=== PATIENT | male | born 1940 | race Caucasian/White ===

== ENCOUNTER 2016-12-20 16:45 | Emergency (ER) | payer MEDICARE, BC ==
[2016-12-20 16:49] VITALS: BP 138/84
[2016-12-20] MEDS ORDERED: diphenhydrAMINE 50 MG/ML SDV IVPUSH ONE (17:08)
[2016-12-20] MEDS ORDERED: methylPREDNISolone Sodium Succinate 125 MG/2 ML SDV IVPUSH ONE (17:08)
[2016-12-20] MEDS ORDERED: Sodium Chloride 0.9% 10 ML Syringe FLUSH SCH (17:30)
--- NOTE | 2016-12-20 17:44 | EDM.PDOC ---
ED HPI GENERAL MEDICAL PROBLEM - General Chief Complaint: Allergic Reaction Stated Complaint: Right face & Lip swelling Time Seen by Provider: 12/20/16 17:11 Source of Information: Reports: Patient History Limitations: Reports: No Limitations - History of Present Illness INITIAL COMMENTS - FREE TEXT/NARRATIVE: Patient comes in after noticing right sided lip swelling. Also complains of some numbness in face around lateral upper and lower lip and adjacent to right corner of mouth. Had similar incident recently after being diagnosed with a tooth infection and placed on Clindamycin. Infection developed after root canal. At that time it was thought that the swelling was due to Clindamycin. He was changed to another antibiotic. Eventually swelling went away. He denies having any tooth pain prior to today's episode. No fevers/chills No other complaints. Tongue feels normal. No itching or rash. Took 50mg Benadryl around 11am and has not noticed any improvement. - Related Data Allergies Allergy/AdvReac Type Severity Reaction Status Date / Time clindamycin Allergy facial Verified 12/20/16 16:53 edema Home Meds: Home Meds Aspirin 81 mg PO BEDTIME 12/20/16 [History] Cephalexin [Keflex] 500 mg PO Q6HR #16 capsule 12/20/16 [Rx] Simvastatin [Zocor] 10 mg PO BEDTIME 12/20/16 [History] amLODIPine Besylate/Benazepril [Amlodipine-Benazepril 10-20 MG] 1 tab PO DAILY 12/20/16 [History] Past Medical History HEENT History: Reports: Impaired Vision Other HEENT History: wears glasses Cardiovascular History: Reports: High Cholesterol, Hypertension Gastrointestinal History: Reports: Chronic Constipation, GERD Musculoskeletal History: Reports: Fracture Neurological History: Reports: None Dermatologic History: Reports: Angiodema - Past Surgical History GI Surgical History: Reports: Appendectomy Social & Family History - Tobacco Use Smoking Status *Q: Former Smoker Years of Tobacco use: 30 Packs/Tins Daily: 1 Used Tobacco, but Quit: Yes Month Tobacco Last Used: qiut 20 years ago Second Hand Smoke Exposure: No - Caffeine Use Caffeine Use: Reports: Soda - Alcohol Use Days Per Week of Alcohol Use: 7 Number of Drinks Per Day: 2 Total Drinks Per Week: 14 - Recreational Drug Use Recreational Drug Use: No ED ROS ALLERGIC REACTION - Review of Systems Review Of Systems: See Below Constitutional: Reports: No Symptoms. Denies: Fever, Chills, Malaise, Weakness , Fatigue, Night Sweats, Diaphoresis, Decreased Appetite, Weight Loss, Weight Gain HEENT: Reports: Other (Right upper lip swelling and numbness as per HPI). Denies: Eye Discharge, Eye Pain, Rhinitis, Throat Pain, Throat Swelling, Vertigo , Vision Change Respiratory: Reports: No Symptoms Cardiovascular: Reports: No Symptoms Endocrine: Reports: No Symptoms GI/Abdominal: Reports: No Symptoms : Reports: No Symptoms Musculoskeletal: Reports: No Symptoms Skin: Reports: No Symptoms Neurological: Reports: No Symptoms Psychiatric: Reports: No Symptoms Hematologic/Lymphatic: Reports: No Symptoms ED EXAM GENERAL NO PERIP PULSE - Physical Exam Exam: See Below Exam Limited By: No Limitations General Appearance: Alert, WD/WN, No Apparent Distress Eye Exam: Bilateral Eye: EOMI, PERRL Ears: Normal External Exam Nose: Normal Inspection Throat/Mouth: Normal Teeth, Normal Gums, Normal Oropharynx, Normal Voice, No Airway Compromise, Other (Right upper lip mildly swollen, right corner lower lip appears mildly swollen. Corner of mouth did not turn up as much on right vs nonaffected side when patient smiled. Teeth and gums non-tender to palpation. No droop noted involving right cheek or right eye. ) Head: Atraumatic, Facial Swelling (see HPI), Other (mild increased firmness near right corner of mouth, no obvious abscess). No: Facial Tenderness Neck: Normal Inspection, Supple, Non-Tender, Full Range of Motion. No: Lymphadenopathy (L), Lymphadenopathy (R) Respiratory/Chest: No Respiratory Distress, Lungs Clear, Normal Breath Sounds, No Accessory Muscle Use Cardiovascular: Regular Rate, Rhythm, No Murmur GI/Abdominal: Soft, Non-Tender Back Exam: Normal Inspection Extremities: Normal Inspection, Normal Capillary Refill Neurological: Alert, Oriented, Normal Cognition, Normal Gait, No Motor/Sensory Deficits Psychiatric: Normal Affect, Normal Mood Skin Exam: Warm, Dry, Intact, Normal Color, No Rash Course - Vital Signs Last Recorded V/S: Last Vital Signs Temp 36.6 C 12/20/16 16:48 Pulse 107 H 12/20/16 17:51 Resp 18 12/20/16 16:48 BP 138/84 12/20/16 16:48 Pulse Ox 96 12/20/16 17:51 - Orders/Labs/Meds Orders: Active Orders 24 hr Category Date Time Status Sodium Chloride 0.9% [Saline Flush] Med 12/20/16 17:30 Active 10 ml FLUSH ASDIRECTED Medication Orders Sodium Chloride (Saline Flush) 10 ml FLUSH ASDIRECTED VASILIY Last Admin: 12/20/16 17:29 Dose: 10 ml Meds: Medications Generic Name Dose Route Start Last Admin Trade Name Freq PRN Reason Stop Dose Admin Sodium Chloride 10 ml 12/20/16 17:30 12/20/16 17:29 Saline Flush FLUSH 10 ml ASDIRECTED VASILIY Administration Discontinued Medications Generic Name Dose Route Start Last Admin Trade Name Freq PRN Reason Stop Dose Admin Diphenhydramine HCl 50 mg 12/20/16 17:08 12/20/16 17:16 Benadryl IVPUSH 12/20/16 17:09 50 mg ONETIME ONE Administration Methylprednisolone Sodium Succinate 125 mg 12/20/16 17:08 12/20/16 17:14 Solu-Medrol IVPUSH 12/20/16 17:09 125 mg ONETIME ONE Administration - Re-Assessments/Exams Free Text/Narrative Re-Assessment/Exam: 12/20/16 18:27 Uncertain if this reflects allergic reaction. May be due to recurrent dental infection given recent history of similar changes last month when he had infection s/p root canal. Infection and swelling of a tooth could cause observed symptoms, and earlier episode likely not related to Clindamycin as originally thought. Plan at this time is to treat for both possibilities. Single dose Solu-medrol and Benadryl given. Patient placed on Keflex. He may continue Benadryl at home. Precautions reviewed prior to discharge. He is to follow up with dentist Thursday after , and if needed follow up with primary provider if symptoms persist. Pulse 91-97 during exam. Patient said that he gets a bit anxious when in doctor' s office. Does not feel that heart rate is elevated compared to normal. Does not appear consistent with Mora's Palsy at this time. Departure - Departure Time of Disposition: 17:34 Disposition: Home, Self-Care 01 Condition: Good Clinical Impression: Lip swelling, Lt facial numbness - Discharge Information Prescriptions: Cephalexin [Keflex] 500 mg PO Q6HR #16 capsule Instructions: Diphenhydramine injection, Methylprednisolone Solution for Injection, Cephalexin tablets or capsules Referrals: Gulshan Maynard PA [Primary Care Provider] - Additional Instructions: Follow up in ER over weekend if things worsen, especially if you develop shortness of breath or rash. As discussed, this could be due to a tooth infection and not an allergic reaction. Take antibiotics every 6 hours. Follow up with dentist on Thursday if symptoms persist. You can also follow up with your primary provider if dentist does not think that this is a dental issue. - My Orders Last 24 Hours: My Active Orders 12/20/16 17:30 Sodium Chloride 0.9% [Saline Flush] 10 ml FLUSH ASDIRECTED - Assessment/Plan Last 24 Hours: My Active Orders 12/20/16 17:30 Sodium Chloride 0.9% [Saline Flush] 10 ml FLUSH ASDIRECTED
== END 2016-12-20 17:55 | disposition home or self-care (01) ==
LOC: LL.ED 16:45
DX: R22.0 Localized swelling, mass and lump, head (principal); R20.0 Anesthesia of skin; I10 Essential (primary) hypertension; E78.00 Pure hypercholesterolemia, unspecified; K21.9 Gastro-esophageal reflux disease without esophagitis; Z88.1 Allergy status to other antibiotic agents; Z88.5 Allergy status to narcotic agent; Z90.89 Acquired absence of other organs; Z87.891 Personal history of nicotine dependence
CPT/HCPCS: 96374; 96375; 99283; J1200; J2930; J7050

== ENCOUNTER 2018-06-17 07:55 | Day surgery (SDC) | payer MEDICARE, BC ==
[2018-06-17] MEDS ORDERED: Sodium Chloride 0.9% 10 ML Syringe FLUSH PRN ×2 (08:00→10:45)
[2018-06-17] MEDS ORDERED: Lactated Ringers 1,000 ML IV SCH ×2 (08:00→10:45)
[2018-06-17] MEDS ORDERED: Midazolam 1 MG/ML 2 ML SDV ONE ×2 (09:04→09:08)
[2018-06-17] MEDS ORDERED: Propofol 200 MG/20 ML SDV ONE ×3 (09:04→11:17)
[2018-06-17] MEDS ORDERED: fentaNYL 100 MCG/2 ML SDV ONE ×2 (09:04→09:08)
--- NOTE | 2018-06-17 09:10 | PCM.PN ---
- General Info Date of Service: 06/17/18 - Review of Systems Systems Review Comment:: 77 y/o male here for EGD and colonoscopy. He has a history of change in bowel habits with guaiac positive stools and GERD. His recent history and physical is reviewed and no significant changes are noted. I have discussed the proposed upper and lower endoscopy with the patient. Risks such as but not limited to bleeding and GI injury reviewed. He appears to understand and agrees to proceed. - Patient Data Vitals - Most Recent: Last Vital Signs Temp 97.9 F 06/17/18 08:19 Pulse 80 06/17/18 08:19 Resp 20 06/17/18 08:19 BP 96/70 06/17/18 08:19 Pulse Ox 98 06/17/18 08:19 Weight - Most Recent: 98.883 kg Med Orders - Current: Current Medications Lactated Ringer's (Ringers, Lactated) 1,000 mls @ 125 mls/hr IV ASDIRECTED VASILIY Last Admin: 06/17/18 08:30 Dose: 125 mls/hr Sodium Chloride (Saline Flush) 10 ml FLUSH ASDIRECTED PRN PRN Reason: Keep Vein Open Discontinued Medications Lactated Ringer's (Ringers, Lactated) 1,000 mls @ 125 mls/hr IV ASDIRECTED VASILIY Sodium Chloride (Saline Flush) 10 ml FLUSH ASDIRECTED PRN PRN Reason: Keep Vein Open - Problem List Review Problem List Initiated/Reviewed/Updated: Yes - My Orders Last 24 Hours: My Active Orders 06/17/18 08:00 Patient Status [ADT] Routine Peripheral IV Care [RC] . DIRECTED Verify Patient Consent Obtain [RC] ASDIRECTED Lactated Ringers [Ringers, Lactated] 1,000 ml IV ASDIRECTED Sodium Chloride 0.9% [Saline Flush] 10 ml FLUSH ASDIRECTED PRN Peripheral IV Insertion Adult [OM.PC] Routine - Assessment Assessment:: GERD Guaiac positive stools Change in bowel habits - Plan Plan:: EGD and colonoscopy
--- NOTE | 2018-06-17 10:15 | PCM.OPNOTE ---
- General Post-Op/Procedure Note Date of Surgery/Procedure: 06/17/18 Operative Procedure(s): EGD with biopsy. Colonoscopy with Polypectomy and polyp destruction Findings: Moderate duodenitis with erosions distal esophageal mucosal changes, possible Patterson's esophagus multiple small rectal polyps and larger hepatic flexure polyp moderate sigmoid diverticulosis Pre Op Diagnosis: GERD. Guaiac positive stools Post-Op Diagnosis: Erosive duodenitis. Reflux esophagitis. moderate sigmoid diverticulosis. multiple colon polyps Anesthesia Technique: MAC Primary Surgeon: Louis Mckinley Pathology: Biopsies of duodenum stomach and esophagus Colon polyps EBL in mLs: 3 Complications: None Condition: Good Free Text/Narrative:: Intake & Output 06/16/18 06/17/18 06/17/18 22:59 06:59 14:59 Intake Total 950 Balance 950
[2018-06-17 10:38] VITALS: BP 98/56
[2018-06-17] MEDS ORDERED: Lidocaine 2% 5 ML SDV ONE (11:17)
--- NOTE | 2018-06-17 14:41 | OR ---
Date of Procedure: 06/17/2018 REFERRING PROVIDER: OSWALDO Marie PREOPERATIVE DIAGNOSES: Guaiac-positive stools and gastroesophageal reflux disease. POSTOPERATIVE DIAGNOSES: Erosive duodenitis, reflux esophagitis, sigmoid diverticulosis, and colon polyps. OPERATION PERFORMED: Esophagogastroduodenoscopy with biopsy and colonoscopy with polypectomy and polyp ablation. INDICATIONS FOR SURGERY: This 77-year-old male was referred for EGD and colonoscopy. He has a history of GERD and also has a recent change in bowel habits and was noted to have guaiac-positive stools. FINDINGS: On upper endoscopy, the patient had inflammation of the first portion of the duodenum. There were some areas of hyperemia of the mucosa as well as some superficial erosions, although no active bleeding seen at this time. The gastric mucosa appeared normal without visible inflammation or ulceration. The GE junction does show evidence of some chronic inflammation with at least one tongue of salmon-colored mucosa extending proximally 2 cm from the GE junction at the 39 cm level. The remainder of the esophagus appeared normal. In the patient's colon, he had multiple polyps including two 5 to 6 mm semi pedunculated polyps in the rectum, approximately 3 cm from the anal verge. There were other multiple 2 to 3 mm polyps noted in the rectum. The patient also had a 1-cm pedunculated polyp noted at the hepatic flexure. There was also moderate degree of sigmoid diverticulosis, although there was no evidence of acute inflammation at this time. DESCRIPTION OF PROCEDURE: The patient was taken to the operating room. He was given intravenous sedation and his throat was topically anesthetized. The esophagus was then intubated with the Olympus gastroscope, which was carefully advanced down through the esophagus, stomach, and into the duodenum, where examination to the 3rd portion was performed. In the area of inflammation in the duodenal bulb, multiple biopsies were taken. The scope was withdrawn into the stomach where full examination including retroflexed examination of the fundus was carried out. Biopsies of the antrum were taken to rule out H. pylori. The GE junction was then carefully examined, and in the area of mucosal change, biopsies were taken to rule out Patterson esophagus. The esophagus was then re-examined as the scope was removed. Attention was turned to colonoscopy. Digital rectal exam was performed showing no rectal masses. The Olympus colonoscope was inserted into the rectum and retroflexed examination of the rectal canal was performed. The two larger polyps in the rectum were removed with cautery snare and retrieved into a polyp trap. They were submitted as a single specimen. Other small polyps noted in the rectum are destroyed with the cautery snare ablating the polyps. The scope was then carefully advanced down through the entire length of the colon until the cecum was reached. The colon did have some angulation in the area of the sigmoid region as well as in the right colon and hand pressure was required to eventually allow safe visualization of the cecum. This was able to be accomplished and the ileocecal valve and appendiceal orifice were viewed. During insertion of the scope, the polyp in the hepatic flexure was noted and it was removed with a cautery snare and retrieved into a polyp trap. Once the cecum had been carefully examined, the scope was slowly withdrawn sequentially re-examining the colonic segments until the entire colon and rectum had been fully examined. The scope was removed and the patient was taken from the operating room in satisfactory condition. ESTIMATED BLOOD LOSS: 3 mL. COMPLICATIONS: None. PROGNOSIS: Good. ALYSA Mckinley MD /[id number]
== END 2018-06-17 11:40 | disposition home or self-care (01) ==
LOC: LL.SDS 07:55
PROVIDERS: ATTEND Surgery
DX: R19.4 Change in bowel habit (principal); K21.0 Gastro-esophageal reflux disease with esophagitis; K29.81 Duodenitis with bleeding; K29.71 Gastritis, unspecified, with bleeding; K20.9 Esophagitis, unspecified; K57.31 Diverticulosis of large intestine without perforation or abscess with bleeding; D12.3 Benign neoplasm of transverse colon; K62.1 Rectal polyp; Z79.82 Long term (current) use of aspirin; Z79.899 Other long term (current) drug therapy; Z88.1 Allergy status to other antibiotic agents; Z87.891 Personal history of nicotine dependence
CPT/HCPCS: 00813; J2001; J2250; J2704; J3010; J7120

== ENCOUNTER 2019-07-14 07:44 | Day surgery (SDC) | payer MEDICARE, BC ==
[2019-07-14] MEDS ORDERED: Sodium Chloride 0.9% 10 ML Syringe FLUSH PRN (07:45)
[2019-07-14] MEDS ORDERED: Lactated Ringers 1,000 ML IV SCH (07:45)
[2019-07-14] MEDS ORDERED: Propofol 200 MG/20 ML SDV ONE ×2 (07:53→09:00)
--- NOTE | 2019-07-14 09:04 | PCM.PN ---
- General Info Date of Service: 07/14/19 - Review of Systems Systems Review Comment:: 79-year-old male with history oesophagus here for EGD. He also has been having some blood-tinged sputum. He is medically stable to proceed today. His recent history and physical is reviewed and no significant changes are noted. I have discussed the proposed EGD with the patient. He agrees to proceed accepting risks. - Patient Data Vitals - Most Recent: Last Vital Signs Temp 98.4 F 07/14/19 08:23 Pulse 78 07/14/19 08:23 Resp 18 07/14/19 08:23 BP 97/58 L 07/14/19 08:23 Pulse Ox 94 L 07/14/19 08:23 Weight - Most Recent: 99.79 kg Med Orders - Current: Current Medications Lactated Ringer's (Ringers, Lactated) 1,000 mls @ 125 mls/hr IV ASDIRECTED VASILIY Last Admin: 07/14/19 08:21 Dose: 125 mls/hr Sodium Chloride (Saline Flush) 10 ml FLUSH ASDIRECTED PRN PRN Reason: Keep Vein Open Discontinued Medications Propofol (Diprivan 20 Ml) Confirm Administered Dose 400 mg .ROUTE .STK-MED ONE Stop: 07/14/19 07:54 Sepsis Event Note - Focused Exam Vital Signs: Vital Signs Temp Pulse Resp BP Pulse Ox 07/14/19 08:23 98.4 F 78 18 97/58 L 94 L Date Exam was Performed: 07/14/19 Time Exam was Performed: 09:02 - Problem List Review Problem List Initiated/Reviewed/Updated: Yes - My Orders Last 24 Hours: My Active Orders 07/14/19 07:45 Patient Status [ADT] Routine Peripheral IV Care [RC] . DIRECTED Verify Patient Consent Obtain [RC] ASDIRECTED Lactated Ringers [Ringers, Lactated] 1,000 ml IV ASDIRECTED Sodium Chloride 0.9% [Saline Flush] 10 ml FLUSH ASDIRECTED PRN Peripheral IV Insertion Adult [OM.PC] Routine - Assessment Assessment:: history of Patterson's esophagus Blood-tinged sputum - Plan Plan:: EGD
--- NOTE | 2019-07-14 09:32 | PCM.OPNOTE ---
- General Post-Op/Procedure Note Date of Surgery/Procedure: 07/14/19 Operative Procedure(s): EGD with biopsy Findings: single tongue of short segment Patterson's esophagus approximately 3 cm in length small hiatal hernia Pre Op Diagnosis: history of Patterson's esophagus Post-Op Diagnosis: Patterson's esophagus. Hiatal hernia Anesthesia Technique: MAC Primary Surgeon: Louis Mckinley Pathology: biopsies of distal esophagus EBL in mLs: 3 Complications: None Condition: Good
[2019-07-14 11:16] VITALS: BP 130/75; PULSE 77
--- NOTE | 2019-07-14 11:50 | OR ---
Date of Procedure: 07/14/2019 PREOPERATIVE DIAGNOSIS: History of Patterson's esophagus and hemoptysis. POSTOPERATIVE DIAGNOSIS: Patterson's esophagus and hiatal hernia. OPERATION PERFORMED: Esophagogastroduodenoscopy with biopsy. INDICATIONS FOR SURGERY: This 79-year-old male has a known history of Patterson's esophagus. He comes for surveillance upper endoscopy. He also has recently noted some blood in his sputum. FINDINGS: In the distal esophagus, the patient has a single tongue of Patterson's esophagus. This extends from the GE junction at approximately 40 cm to the approximately the 37 cm level. There is no stricturing. The remainder of the esophagus appears normal. The patient also has a [id number] sized hiatal hernia which does not appear to be acutely inflamed. The remainder of the stomach and the proximal duodenum appeared normal. DESCRIPTION OF PROCEDURE: The patient was taken to the operating room. He was given intravenous sedation, and with him in the left lateral decubitus position, the Olympus gastroscope was advanced via a mouth guard into the patient's mouth. Under direct visualization, the scope was carefully advanced through the oropharynx down into the esophagus and then on through the esophagus, stomach, and into the duodenum, where examination to the fourth portion was performed. The duodenum was carefully examined. The scope was withdrawn back into the stomach where full examination including retroflexed examination of the fundus was performed. The GE junction area was carefully examined as well as the distal esophagus. Biopsies were taken at multiple levels in this region to follow up his Patterson's esophagus. The scope was then slowly withdrawn re- examining the esophagus and then removed. The patient was then awakened and taken from the operating room in satisfactory condition. ESTIMATED BLOOD LOSS: 3 mL. COMPLICATIONS: None. PROGNOSIS: Good. ALYSA Mckinley MD /[id number]
== END 2019-07-14 10:49 | disposition home or self-care (01) ==
LOC: LL.SDS 07:44
PROVIDERS: ATTEND Surgery
DX: K22.70 Barrett's esophagus without dysplasia (principal); K44.9 Diaphragmatic hernia without obstruction or gangrene; J41.0 Simple chronic bronchitis; Z87.891 Personal history of nicotine dependence; Z79.82 Long term (current) use of aspirin; Z79.899 Other long term (current) drug therapy; Z88.0 Allergy status to penicillin; Z88.1 Allergy status to other antibiotic agents; Z98.890 Other specified postprocedural states; Z90.49 Acquired absence of other specified parts of digestive tract; Z80.0 Family history of malignant neoplasm of digestive organs
CPT/HCPCS: 00731; J2704; J7120